=== PATIENT | male | born 1930 | race Caucasian/White ===

== ENCOUNTER 2016-10-29 10:03 | Emergency (ER) | payer SELFPAY ==
--- NOTE | 2016-10-29 10:13 | ED Physician Documentation ---
Upper Extremity Problem - HISTORIAN Historian: patient - HPI Chief Complaint: Upper Extremity Injury Location: R shoulder Onset: minutes (30) Timing: still present Recent Injury: Yes (slipped on wet grass) Where: home Severity: moderate Associated Symptoms: denies: fever, chills, shortness of breath, difficulty breathing, chest pain Exacerbated By: change in position, coughing Relieved By: rest Quality: pain, swelling. denies: numbness, tingling Further Comments: yes (Patient stats that he fell and landed on his right shoulder, has immediat pain. Has not been able to move the shoulder since that time. /denies any previous injury to the right shoulder. No numbness or weakness to the arm.) - ROS CONST: no problems CVS/RESP: denies: chest pain, shortness of breath GI/: denies: abdominal pain MS/SKIN/LYMPH: joint pain NEURO/PSYCH: denies: headache, fainting, dizziness - PAST HX Past History: other (HTN) Other History: none Surgeries/Procedures: other (cataracts, inguinal hernia) Immunizations: referred to PCP Allergies/Adverse Reactions: Allergies Allergy/AdvReac Type Severity Reaction Status Date / Time Penicillins Allergy Verified 10/29/16 10:18 Home Medications: Ambulatory Orders Medication Instructions Recorded Albuterol Sulfate [Proair 1 puff IN QID 10/29/16 Respiclick] Aspirin [Adult Low Dose Aspirin EC] 81 mg PO DAILY 10/29/16 Hydralazine HCl [APRESOLINE] 40 mg PO BID 10/29/16 Lisinopril [Zestril] 40 mg PO BID 10/29/16 amLODIPine BESYLATE [Norvasc] 5 mg PO DAILY 10/29/16 - SOCIAL HX Smoking History: greater than 1 pack/day (1 /2 ppd) Alcohol Use: none Drug Use: none - FAMILY HX Family History: no significant history - VITAL SIGNS Vital Signs: Vital Signs Temp Pulse Resp BP Pulse Ox 97.8 F 68 22 153/74 91 L 10/29/16 12:07 10/29/16 12:07 10/29/16 12:07 10/29/16 12:07 10/29/16 12:07 - REVIEWED ASSESSMENTS Nursing Assessment Reviewed: Yes Vitals Reviewed: Yes Progress - Progress Progress: 11:15 Patient states that his wheezing seem to be tighter. wants to use his daughter' s inhaler. ED Results Lab/Radiology - Orders Orders: ED Orders Category Date Time Status Place IV Lock 1T Care 10/29/16 11:11 Active SHOULDER 2 VIEWS OR MORE [RAD] Stat Exams 10/29/16 Taken Ipratropium/Albuterol Sulfate [Duoneb] Med 10/29/16 11:13 Discontinued 3 ml NEB NOW ONE Ketorolac Tromethamine [Toradol] Med 10/29/16 10:15 Discontinued 60 mg IM NOW ONE fentaNYL CITRATE/PF [Duragesic] Med 10/29/16 11:14 Discontinued 50 mcg IVP NOW ONE Upper Extremity Problem - EXAM General Appearance: alert, moderate distress Skin: warm/dry, normal color Shoulder Exam: bone tenderness (proximal), limited ROM, soft tissue tenderness, swelling (anterior) Elbow/Forearm Exam: normal inspection, non-tender, no evidence of injury, normal ROM, abrasions Wrist Exam: normal inspection, non-tender, no evidence of injury, normal ROM Hand Exam: normal inspection, non-tender, no evidence of injury, normal ROM Neuro/Tendon: normal sensation, normal motor functions, normal tendon functions EENT: eye inspection normal, ENT inspection normal CVS: reg rate & rhythm, heart sounds normal, equal pulses, no murmur, no gallop Vascular: no vascular compromise. No: pulse deficit Peripheral: sensation nml, motor nml Central: oriented X3, CN's nml as tested, motor nml, sensation nml, mood/affect nml Respiratory: no resp. distress, wheezes (mild expiratory bialter) Discharge Clincal Impression: Proximal humeral fracture Qualifiers: Encounter type: initial encounter Fracture type: closed Fracture morphology: other fracture Fracture alignment: displaced Laterality: right Qualified Code(s) : S42.291A - Other displaced fracture of upper end of right humerus, initial encounter for closed fracture Referrals: Selene Malagon MD [Primary Care Provider] - 2 Days Home Medications: Ambulatory Orders Albuterol Sulfate [Proair Respiclick] 1 puff IN QID 10/29/16 Aspirin [Adult Low Dose Aspirin EC] 81 mg PO DAILY 10/29/16 Hydralazine HCl [APRESOLINE] 40 mg PO BID 10/29/16 Lisinopril [Zestril] 40 mg PO BID 10/29/16 amLODIPine BESYLATE [Norvasc] 5 mg PO DAILY 10/29/16 Condition: Stable Disposition: 02 XFER [id number] HOSP Decision to Admit: [id number] Date of Decison to Admit: 10/29/16 Decision Time: 11:11
[2016-10-29] MEDS ORDERED: KETOROLAC TROMETHAMINE 60 MG/2 ML VIAL IM ONE (10:15)
[2016-10-29] MEDS ORDERED: IPRATROPIUM/ALBUTEROL SULFATE 3 ML AMPUL.NEB NEB ONE (11:13)
[2016-10-29] MEDS ORDERED: fentaNYL CITRATE/PF 100 MCG/ 2ML AMP IVP ONE (11:14)
[2016-10-29 12:10] VITALS: BP 153/74
--- NOTE | 2016-10-29 18:03 | Diagnostic Imaging Report ---
MING ALFONSO~ [facility] [address] [facility] [address] [address] ~ ~ ~ ~ Report Submission Date: Oct 29, 2016 10:46:14 AM CDT Patient ~ Study Name: YISSEL CARABALLO ~ Date: Oct 29, 2016 10:29:54 AM CDT ~ Modality Type: CR Gender: M ~ Description: SHOULDER : 28 ~ Institution: [facility] Physician: MING ALFONSO ~ ~ ~ ~ Right shoulder, 3 views. History: PT FELL TODAY ~ Findings: There is a comminuted fracture of the proximal humeral neck/shaft with lateral and posterior displacement of the distal fragment. The humeral head remains seated ~within the glenoid fossa. The acromioclavicular joint is normal position. Distal portion hemithorax is normal. Impression: ~1. Comminuted fracture involving the right humeral neck/proximal shaft with significant posterior and lateral displacement. ~ Electronically signed on Oct 29, 2016 10:46:14 AM CDT by: Thomas FERNANDEZ
== END 2016-10-29 11:50 | disposition short-term general hospital (02) ==
LOC: ED 10:03
DX: S42.291A Other displaced fracture of upper end of right humerus, initial encounter for closed fracture (principal); W19.XXXA Unspecified fall, initial encounter; Y93.9 Activity, unspecified; Y99.9 Unspecified external cause status
CPT/HCPCS: 73030; J1885; J3010; 96372; 96374; 99284; S1016